=== PATIENT | female | born 1995 | race Two or more races ===

== ENCOUNTER 2020-08-14 18:20 | Emergency (ER) | payer OTHER ==
[~2020-08-14] VITALS: Ht 162.6 cm; Wt 70.8 kg
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
[2020-08-14] MEDS ORDERED: HYDROCODONE/APAP 5/325MG TABLET ONE (19:05)
[2020-08-14] MEDS ORDERED: ONDANSETRON 4 MG TAB.RAPDIS ONE (19:05)
--- NOTE | 2020-08-14 19:08 | NUR ---
TYRESE HUMPHRIES WILL PICK PT UP [phone]
[2020-08-14 19:12] LABS: BASOPHILS # (AUTO) 0.1 /CMM (0.0-0.2); BASOPHILS % (AUTO) 0.8 % (0.0-2.0); EOSINOPHILS % (AUTO) 0.6 % (0.0-6.0); HEMATOCRIT 38 % (33-45); HEMOGLOBIN 13.1 g/dL (11.5-14.8); LYMPHOCYTES # (AUTO) 1.1 /CMM (0.8-4.8); LYMPHOCYTES % (AUTO) 14.8 % (20.0-44.0); MEAN CORPUSCULAR HGB CONC 35 g/dl (31.0-36.0); MEAN CORPUSCULAR VOLUME 95 fL (82-100); MONOCYTES # (AUTO) 0.5 /CMM (0.1-1.30); MONOCYTES % (AUTO) 6.7 % (2.0-12.0); NEUTROPHILS # (AUTO) 5.9 /CMM (1.8-8.9); NEUTROPHILS % (AUTO) 77.1 % (43.0-81.0); PLATELET COUNT (AUTO) 298 /CMM (150-450); RED BLOOD CELL COUNT(AUTO) 3.97 MIL/uL (4.0-5.2); WHITE BLOOD COUNT (AUTO) 7.7 K/uL (4.3-11.0)
--- NOTE | 2020-08-14 19:27 | NUR ---
ARNULFO OFFICER AT [facility] TALKING TO PT
[2020-08-14] MEDS ORDERED: HYDROCODONE/APAP 5/325MG TABLET PO ONE (19:30)
[2020-08-14] MEDS ORDERED: ONDANSETRON 4 MG TAB.RAPDIS PO ONE (19:30)
[2020-08-14 19:31] LABS: LIPASE 89 U/L (73-393)
[2020-08-14 19:33] LABS: ALBUMIN 4.3 g/dL (3.4-5.0); BILIRUBIN,DIRECT 0.1 mg/dL (0.0-0.2); BILIRUBIN,TOTAL 0.5 mg/dL (0.2-1.0); CALCIUM, SERUM 8.5 mg/dL (8.5-10.1); CREATININE 0.7 mg/dL (0.6-1.3); POTASSIUM 4.2 mmol/L (3.5-5.1); TOTAL PROTEIN, SERUM 7.6 g/dL (6.4-8.2)
[2020-08-14] MEDS ORDERED: IOHEXOL-300 100 ML VIAL IV ONE (19:44)
[2020-08-14] MEDS ORDERED: IV NS 0.9% 250 ML IV ONE (19:44)
--- NOTE | 2020-08-14 21:50 | NUR ---
[facility] CALLED PER ER MD ORDER.
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
--- NOTE | 2020-08-14 22:45 | NUR ---
PT AMBULATING ON STEADY GAIT. PAIN IS BETTER WHEN WALKING.
[2020-08-14 23:20] VITALS: BP 128/75
--- NOTE | 2020-08-14 23:20 | NUR ---
Patient discharged to home in stable condition. Written and verbal after care instructions given. Patient verbalizes understanding of instruction.IV removed. Catheter intact and site benign. Pressure and 4x4 applied to site. No bleeding noted. Pt ambulatory with a steady gait
== END 2020-08-14 23:22 | disposition home or self-care (01) ==
LOC: ER 18:22
DX: S60.212A Contusion of left wrist, initial encounter (principal); S30.810A Abrasion of lower back and pelvis, initial encounter; S70.211A Abrasion, right hip, initial encounter; N83.202 Unspecified ovarian cyst, left side; V49.49XA Driver injured in collision with other motor vehicles in traffic accident, initial encounter; Y93.89 Activity, other specified; Y92.488 Other paved roadways as the place of occurrence of the external cause; Y99.8 Other external cause status
CPT/HCPCS: 29125; 36415; 71045; 73110; 74177; 80048; 80076; 83690; 84702; 85025; 85730; 99285; J7050; Q0162; Q9967